=== PATIENT | male | born 1940 | race Caucasian/White ===

== ENCOUNTER → 2019-06-14 | Outpatient (CLI) | payer OTHER, MEDICARE ==
[~2019-06-14] MED LIST: ALDACTONE25 MG PO; ASPIRIN EC325 M1 PO; B12INJ; BYSTOLIC 5 MG5 M1 PO; CO Q-10100 MG PO; COUMADIN 4 MG TA4 M1 PO; KEFLEX500 MG PO; LIPITOR80 MG PO; TRILIPIX135 MG PO
== END ==
LOC: SJCVC 09:38
DX: Z51.81 Encounter for therapeutic drug level monitoring (principal); I25.10 Atherosclerotic heart disease of native coronary artery without angina pectoris; I10 Essential (primary) hypertension; E78.00 Pure hypercholesterolemia, unspecified; Z86.711 Personal history of pulmonary embolism; Z86.718 Personal history of other venous thrombosis and embolism; Z79.01 Long term (current) use of anticoagulants

== ENCOUNTER → 2019-06-21 | Outpatient (CLI) | payer OTHER, MEDICARE | LOC: SJCVC 09:19 | DX: Z51.81 Encounter for therapeutic drug level monitoring (principal); I25.810 Atherosclerosis of coronary artery bypass graft(s) without angina pectoris; I10 Essential (primary) hypertension; I42.9 Cardiomyopathy, unspecified; E78.00 Pure hypercholesterolemia, unspecified; Z79.01 Long term (current) use of anticoagulants; Z86.711 Personal history of pulmonary embolism; Z86.718 Personal history of other venous thrombosis and embolism ==

== ENCOUNTER → 2019-07-14 | Outpatient (CLI) | payer OTHER, MEDICARE | LOC: SJCVC 09:30 | DX: Z51.81 Encounter for therapeutic drug level monitoring (principal); I25.810 Atherosclerosis of coronary artery bypass graft(s) without angina pectoris; I10 Essential (primary) hypertension; E78.00 Pure hypercholesterolemia, unspecified; E78.5 Hyperlipidemia, unspecified; Z79.01 Long term (current) use of anticoagulants; Z86.711 Personal history of pulmonary embolism; Z95.810 Presence of automatic (implantable) cardiac defibrillator; Z86.718 Personal history of other venous thrombosis and embolism ==

== ENCOUNTER → 2019-08-10 | Outpatient (CLI) | payer OTHER, MEDICARE | LOC: SJCVC 09:16 | DX: Z51.81 Encounter for therapeutic drug level monitoring (principal); I25.10 Atherosclerotic heart disease of native coronary artery without angina pectoris; I25.5 Ischemic cardiomyopathy; I10 Essential (primary) hypertension; E78.00 Pure hypercholesterolemia, unspecified; Z79.01 Long term (current) use of anticoagulants; Z86.718 Personal history of other venous thrombosis and embolism; Z86.711 Personal history of pulmonary embolism ==

== ENCOUNTER → 2019-10-20 | Outpatient (CLI) | payer OTHER, MEDICARE | LOC: SJCVCIMAG 09-06 11:35 | PROVIDERS: ATTEND Internal Medicine Cardiovascular Disease | DX: I08.3 Combined rheumatic disorders of mitral, aortic and tricuspid valves (principal); I11.9 Hypertensive heart disease without heart failure; I44.7 Left bundle-branch block, unspecified; I42.9 Cardiomyopathy, unspecified; E78.5 Hyperlipidemia, unspecified; E78.00 Pure hypercholesterolemia, unspecified; I25.5 Ischemic cardiomyopathy; I73.9 Peripheral vascular disease, unspecified; D68.59 Other primary thrombophilia; I25.2 Old myocardial infarction; Z79.899 Other long term (current) drug therapy; Z86.718 Personal history of other venous thrombosis and embolism; Z95.810 Presence of automatic (implantable) cardiac defibrillator; I25.810 Atherosclerosis of coronary artery bypass graft(s) without angina pectoris; Z95.1 Presence of aortocoronary bypass graft; Z86.711 Personal history of pulmonary embolism; Z79.82 Long term (current) use of aspirin; Z82.49 Family history of ischemic heart disease and other diseases of the circulatory system ==

== ENCOUNTER → 2019-11-16 | Outpatient (CLI) | payer OTHER, MEDICARE | LOC: SJCVC 10:02 | PROVIDERS: ATTEND Internal Medicine Cardiovascular Disease | DX: Z51.81 Encounter for therapeutic drug level monitoring (principal); I25.10 Atherosclerotic heart disease of native coronary artery without angina pectoris; I10 Essential (primary) hypertension; E78.5 Hyperlipidemia, unspecified; E78.00 Pure hypercholesterolemia, unspecified; Z95.810 Presence of automatic (implantable) cardiac defibrillator; Z79.01 Long term (current) use of anticoagulants; Z79.82 Long term (current) use of aspirin; Z86.718 Personal history of other venous thrombosis and embolism; Z86.711 Personal history of pulmonary embolism; Z79.899 Other long term (current) drug therapy ==

== ENCOUNTER → 2019-12-14 | Outpatient (CLI) | payer OTHER, MEDICARE | LOC: SJCVC 09:35 | PROVIDERS: ATTEND Internal Medicine Cardiovascular Disease | DX: Z51.81 Encounter for therapeutic drug level monitoring (principal); I25.10 Atherosclerotic heart disease of native coronary artery without angina pectoris; I10 Essential (primary) hypertension; I42.9 Cardiomyopathy, unspecified; E78.00 Pure hypercholesterolemia, unspecified; Z79.01 Long term (current) use of anticoagulants; Z86.711 Personal history of pulmonary embolism ==

== ENCOUNTER → 2020-01-11 | Outpatient (CLI) | payer OTHER, MEDICARE | LOC: SJCVC 09:22 | PROVIDERS: ATTEND Internal Medicine Cardiovascular Disease | DX: Z51.81 Encounter for therapeutic drug level monitoring (principal); I25.10 Atherosclerotic heart disease of native coronary artery without angina pectoris; I10 Essential (primary) hypertension; E78.5 Hyperlipidemia, unspecified; E78.00 Pure hypercholesterolemia, unspecified; Z79.01 Long term (current) use of anticoagulants; Z86.711 Personal history of pulmonary embolism; Z95.810 Presence of automatic (implantable) cardiac defibrillator; Z86.718 Personal history of other venous thrombosis and embolism; Z79.899 Other long term (current) drug therapy; Z79.82 Long term (current) use of aspirin ==

== ENCOUNTER → 2020-02-08 | Outpatient (CLI) | payer OTHER, MEDICARE | LOC: SJCVC 09:36 | PROVIDERS: ATTEND Internal Medicine Cardiovascular Disease | DX: Z45.02 Encounter for adjustment and management of automatic implantable cardiac defibrillator (principal); I25.10 Atherosclerotic heart disease of native coronary artery without angina pectoris; I10 Essential (primary) hypertension; I42.9 Cardiomyopathy, unspecified; E78.00 Pure hypercholesterolemia, unspecified; I47.2 Ventricular tachycardia; Z95.810 Presence of automatic (implantable) cardiac defibrillator; Z79.01 Long term (current) use of anticoagulants; Z79.899 Other long term (current) drug therapy; Z86.718 Personal history of other venous thrombosis and embolism ==

== ENCOUNTER → 2020-03-08 | Outpatient (CLI) | payer OTHER, MEDICARE | LOC: SJCVC 09:24 | PROVIDERS: ATTEND Internal Medicine Cardiovascular Disease | DX: Z51.81 Encounter for therapeutic drug level monitoring (principal); Z79.01 Long term (current) use of anticoagulants ==

== ENCOUNTER → 2020-03-15 | Outpatient (CLI) | payer OTHER, MEDICARE | LOC: SJCVC 09:21 | PROVIDERS: ATTEND Internal Medicine Cardiovascular Disease | DX: Z51.81 Encounter for therapeutic drug level monitoring (principal); I25.10 Atherosclerotic heart disease of native coronary artery without angina pectoris; I10 Essential (primary) hypertension; E78.00 Pure hypercholesterolemia, unspecified; Z79.01 Long term (current) use of anticoagulants; Z79.899 Other long term (current) drug therapy; Z86.711 Personal history of pulmonary embolism ==

== ENCOUNTER → 2020-03-31 | Outpatient (CLI) | payer OTHER, MEDICARE | LOC: SJCVC 09:26 | PROVIDERS: ATTEND Internal Medicine Cardiovascular Disease | DX: Z51.81 Encounter for therapeutic drug level monitoring (principal); I25.10 Atherosclerotic heart disease of native coronary artery without angina pectoris; I10 Essential (primary) hypertension; E78.00 Pure hypercholesterolemia, unspecified; Z79.01 Long term (current) use of anticoagulants; Z79.899 Other long term (current) drug therapy ==

== ENCOUNTER → 2020-04-25 | Outpatient (CLI) | payer OTHER, MEDICARE | LOC: SJCVC 09:18 | PROVIDERS: ATTEND Internal Medicine Cardiovascular Disease | DX: Z51.81 Encounter for therapeutic drug level monitoring (principal); I82.4Y9 Acute embolism and thrombosis of unspecified deep veins of unspecified proximal lower extremity; I26.99 Other pulmonary embolism without acute cor pulmonale; Z79.01 Long term (current) use of anticoagulants ==

== ENCOUNTER → 2020-05-23 | Outpatient (CLI) | payer OTHER, MEDICARE | LOC: SJCVC 09:21 | PROVIDERS: ATTEND Internal Medicine Cardiovascular Disease | DX: R94.31 Abnormal electrocardiogram [ECG] [EKG] (principal); I45.4 Nonspecific intraventricular block; I47.2 Ventricular tachycardia; I25.5 Ischemic cardiomyopathy; I10 Essential (primary) hypertension; E78.5 Hyperlipidemia, unspecified; I25.10 Atherosclerotic heart disease of native coronary artery without angina pectoris; Z95.1 Presence of aortocoronary bypass graft; Z95.810 Presence of automatic (implantable) cardiac defibrillator; Z79.82 Long term (current) use of aspirin; Z79.01 Long term (current) use of anticoagulants; Z79.899 Other long term (current) drug therapy ==

== ENCOUNTER → 2020-05-31 | Outpatient (CLI) | payer OTHER, MEDICARE ==
[~2020-05-31] MED LIST changes: +COZAAR 25 MG TA25 M1 PO
== END ==
LOC: LAB 10:37
PROVIDERS: ATTEND Internal Medicine Cardiovascular Disease
DX: Z01.812 Encounter for preprocedural laboratory examination (principal); Z20.828 Contact with and (suspected) exposure to other viral communicable diseases

== ENCOUNTER → 2020-06-05 | Outpatient (CLI) | payer OTHER, MEDICARE ==
[~2020-06-05] VITALS: Ht 170.2 cm; Wt 94.3 kg
--- NOTE | ~2020-06-05 | P ---
[facility] [place] [address] PROCEDURE REPORT Name: SHAYY YOUNG Room #: REG [facility]#: [id number] Admission: 06/05/20 Attend Phys: Ji Aquino MD Discharge: Date of : 40 Report #: [id number] THIS REPORT FOR: cc: Omi Ledesma MD, Eric K. MD Couchonnal, Luis F. MD ~ PROCEDURE: ICD generator exchange. PREOPERATIVE DIAGNOSIS: Implantable cardioverter-defibrillator at elective replacement interval. POSTOPERATIVE DIAGNOSIS: Implantable cardioverter-defibrillator at elective replacement interval. HISTORY: The patient is an 80-year-old male with history of ischemic cardiomyopathy, status post ICD implantation, who is here for ICD generator exchange. ANESTHESIA: The patient underwent MAC anesthesia with no anesthesia related complications. DESCRIPTION OF PROCEDURE: The patient underwent informed consent. We discussed the details of the procedure including the risks, which include but not limited to bleeding, infection, vascular damage and need for possible lead revisions. He understood these risks and is willing to proceed. The patient was brought to EP laboratory in fasting and sedated state, prepped and draped in a sterile fashion. He received IV antibiotics prior to initiation of the procedure. Next, I injected lidocaine at the incision site. Incision was made, pocket was opened and the device was removed from the pocket. I expanded the pocket slightly inferiorly and superiorly to allow for the new device to sit in the pocket better and hopefully prevent pocket erosion in the future. The leads were disconnected from the old device and connected to the new can. Tug tests were performed and leads were tested and found to be functioning normally. A TYRX antibiotic pouch was placed in the pocket to prevent infection. The pocket was irrigated with vancomycin. The pocket was closed in 2 layers using 2-0 for the deep layer, 3-0 for the mid layer and surgical glue was placed to outer skin layer. The patient awoke neurologically and hemodynamically intact. No complications and no significant bleeding. The removed device was a Medtronic, model #X077URI, serial #[id number]. The newly implanted device was a Medtronic, model #JPDS1Y8, serial #[id number]. Atrial lead was a Medtronic #5076, 52 cm, serial #[id number], implanted on 11/24/2004. The ICD lead is a Medtronic model #6935, 62 cm, serial #[id number]. This was implanted on 08/10/2012. The patient also has a capped abandoned lead, model #6949, 65 cm, serial #[id number], implanted on 11/28/2004 and this lead was capped. The atrial lead demonstrates a P-wave of 1 millivolt, pacing impedance [facility] [address] [place] [address] PROCEDURE REPORT Name: SHAYY YOUNG JARRETT Room #: REG [facility]#: [id number] Admission: 06/05/20 Attend Phys: Ji Aquino MD Discharge: Date of : 40 Report #: [id number] of 457 ohms and the pacing threshold was 0.7 volts at 0.5 msec. The RV lead demonstrated R-wave of 17.8 millivolts, pacing impedance of 371 ohms, pacing threshold 0.8 volts at 0.5 milliseconds. The device was programmed back to its nominal settings. CONCLUSIONS: 1. Successful dual-chamber ICD implantation. 2. Satisfactory atrial and ventricular pacing and sensing thresholds. By: [id number] Ji Aquino MD /nt
[2020-06-05 07:41] LABS: ABSOLUTE NEUTROPHILS 4.9 thou/uL (1.4-8.2); BASOPHILS 0.7 % (0.0-2.0); HEMATOCRIT 43.5 % (42.0-52.0); HEMOGLOBIN 14.3 gm/dL (14.0-18.0); LYMPHOCYTES 22.9 % (24.0-44.0); MCH 30.4 pg (26.0-34.0); MCHC 32.8 g/dL (28.0-37.0); MCV 92.4 fL (80.0-100.0); MONOCYTES 12.3 % (1.0-8.0); PLATELET COUNT 202 thou/uL (150-400); POLYS 62.1 % (36.0-66.0); RDW 14.1 % (10.5-14.5); WBC 7.8 thou/uL (4.0-11.0)
[2020-06-05 07:48] VITALS: BP 99/42
[2020-06-05 07:54] LABS: CALCIUM 8.9 mg/dL (8.5-10.1); CREATININE 1.1 mg/dL (0.7-1.3); POTASSIUM 4.1 mmol/L (3.5-5.1)
[2020-06-05 08:00] LABS: ALBUMIN 3.6 g/dL (3.4-5.0); TOTAL BILIRUBIN 0.8 mg/dL (0.2-1.0)
[2020-06-05 08:06] LABS: APTT 24.7 Seconds (24.5-32.8); INR 1.2
== END | disposition home or self-care (01) ==
LOC: CATH 06:38
PROVIDERS: ATTEND Internal Medicine Cardiovascular Disease
DX: Z45.02 Encounter for adjustment and management of automatic implantable cardiac defibrillator (principal); I25.5 Ischemic cardiomyopathy; I25.2 Old myocardial infarction; I10 Essential (primary) hypertension; E78.5 Hyperlipidemia, unspecified; Z98.890 Other specified postprocedural states; Z79.899 Other long term (current) drug therapy; Z95.1 Presence of aortocoronary bypass graft; Z82.49 Family history of ischemic heart disease and other diseases of the circulatory system; Z79.82 Long term (current) use of aspirin; Z79.01 Long term (current) use of anticoagulants
CPT/HCPCS: 62110; 62900; 70005

== ENCOUNTER → 2020-06-15 | Outpatient (CLI) | payer OTHER, MEDICARE | LOC: SJCVC 13:05 | PROVIDERS: ATTEND Internal Medicine Cardiovascular Disease | DX: Z51.81 Encounter for therapeutic drug level monitoring (principal); I25.10 Atherosclerotic heart disease of native coronary artery without angina pectoris; I10 Essential (primary) hypertension; E78.5 Hyperlipidemia, unspecified; E78.00 Pure hypercholesterolemia, unspecified; Z95.810 Presence of automatic (implantable) cardiac defibrillator; Z79.01 Long term (current) use of anticoagulants; Z86.711 Personal history of pulmonary embolism; Z79.82 Long term (current) use of aspirin; Z79.899 Other long term (current) drug therapy ==

== ENCOUNTER → 2020-06-29 | Outpatient (CLI) | payer OTHER, MEDICARE | LOC: SJCVC 09:51 | PROVIDERS: ATTEND Internal Medicine Cardiovascular Disease | DX: Z51.81 Encounter for therapeutic drug level monitoring (principal); Z79.01 Long term (current) use of anticoagulants; Z79.82 Long term (current) use of aspirin; Z79.899 Other long term (current) drug therapy; Z91.030 Bee allergy status; Z88.9 Allergy status to unspecified drugs, medicaments and biological substances; Z95.1 Presence of aortocoronary bypass graft; Z98.890 Other specified postprocedural states; Z72.89 Other problems related to lifestyle ==

== ENCOUNTER → 2020-07-28 | Outpatient (CLI) | payer OTHER, MEDICARE | LOC: SJCVC 09:49 | PROVIDERS: ATTEND Internal Medicine Cardiovascular Disease | DX: Z51.81 Encounter for therapeutic drug level monitoring (principal); I82.4Y9 Acute embolism and thrombosis of unspecified deep veins of unspecified proximal lower extremity; I26.99 Other pulmonary embolism without acute cor pulmonale; Z79.02 Long term (current) use of antithrombotics/antiplatelets ==

== ENCOUNTER → 2020-08-22 | Outpatient (CLI) | payer OTHER, MEDICARE | LOC: SJCVC 10:05 | PROVIDERS: ATTEND Internal Medicine Cardiovascular Disease | DX: Z51.81 Encounter for therapeutic drug level monitoring (principal); I10 Essential (primary) hypertension; I25.10 Atherosclerotic heart disease of native coronary artery without angina pectoris; E78.5 Hyperlipidemia, unspecified; E78.00 Pure hypercholesterolemia, unspecified; Z95.810 Presence of automatic (implantable) cardiac defibrillator; Z79.01 Long term (current) use of anticoagulants ==

== ENCOUNTER → 2020-09-19 | Outpatient (CLI) | payer OTHER, MEDICARE | LOC: SJCVC 09:04 | PROVIDERS: ATTEND Internal Medicine Cardiovascular Disease | DX: Z51.81 Encounter for therapeutic drug level monitoring (principal); I82.4Y9 Acute embolism and thrombosis of unspecified deep veins of unspecified proximal lower extremity; I26.99 Other pulmonary embolism without acute cor pulmonale; Z79.01 Long term (current) use of anticoagulants ==

== ENCOUNTER → 2020-10-10 | Outpatient (CLI) | payer OTHER, MEDICARE | LOC: SJCVC 09:27 | PROVIDERS: ATTEND Internal Medicine Cardiovascular Disease | DX: Z51.81 Encounter for therapeutic drug level monitoring (principal); I25.10 Atherosclerotic heart disease of native coronary artery without angina pectoris; I10 Essential (primary) hypertension; I25.5 Ischemic cardiomyopathy; I82.409 Acute embolism and thrombosis of unspecified deep veins of unspecified lower extremity; E78.5 Hyperlipidemia, unspecified; E78.00 Pure hypercholesterolemia, unspecified; Z95.810 Presence of automatic (implantable) cardiac defibrillator; Z79.01 Long term (current) use of anticoagulants ==

== ENCOUNTER → 2020-10-19 | Outpatient (CLI) | payer OTHER, MEDICARE | LOC: SJCVC 10:23 | PROVIDERS: ATTEND Internal Medicine Cardiovascular Disease | DX: Z51.81 Encounter for therapeutic drug level monitoring (principal); I25.5 Ischemic cardiomyopathy; I25.10 Atherosclerotic heart disease of native coronary artery without angina pectoris; I10 Essential (primary) hypertension; E78.5 Hyperlipidemia, unspecified; E78.00 Pure hypercholesterolemia, unspecified; Z95.1 Presence of aortocoronary bypass graft; Z79.01 Long term (current) use of anticoagulants; Z79.899 Other long term (current) drug therapy; Z79.82 Long term (current) use of aspirin; Z72.89 Other problems related to lifestyle; Z88.8 Allergy status to other drugs, medicaments and biological substances ==

== ENCOUNTER → 2020-10-31 | Outpatient (CLI) | payer OTHER, MEDICARE | LOC: SJCVC 09:29 | PROVIDERS: ATTEND Internal Medicine Cardiovascular Disease | DX: Z51.81 Encounter for therapeutic drug level monitoring (principal); I82.4Y9 Acute embolism and thrombosis of unspecified deep veins of unspecified proximal lower extremity; I26.99 Other pulmonary embolism without acute cor pulmonale; Z79.01 Long term (current) use of anticoagulants ==

== ENCOUNTER → 2020-11-14 | Outpatient (CLI) | payer OTHER, MEDICARE | LOC: SJCVC 09:31 | PROVIDERS: ATTEND Internal Medicine Cardiovascular Disease | DX: Z51.81 Encounter for therapeutic drug level monitoring (principal); I25.10 Atherosclerotic heart disease of native coronary artery without angina pectoris; I10 Essential (primary) hypertension; E78.49 Other hyperlipidemia; I25.5 Ischemic cardiomyopathy; Z79.01 Long term (current) use of anticoagulants; Z79.82 Long term (current) use of aspirin; Z79.899 Other long term (current) drug therapy; Z91.048 Other nonmedicinal substance allergy status; E78.00 Pure hypercholesterolemia, unspecified; Z86.718 Personal history of other venous thrombosis and embolism; Z95.828 Presence of other vascular implants and grafts; Z95.1 Presence of aortocoronary bypass graft ==

== ENCOUNTER → 2020-12-12 | Outpatient (CLI) | payer OTHER, MEDICARE | LOC: SJCVC 09:29 | PROVIDERS: ATTEND Internal Medicine Cardiovascular Disease | DX: Z51.81 Encounter for therapeutic drug level monitoring (principal); I25.10 Atherosclerotic heart disease of native coronary artery without angina pectoris; I10 Essential (primary) hypertension; E78.5 Hyperlipidemia, unspecified; E78.00 Pure hypercholesterolemia, unspecified; Z79.01 Long term (current) use of anticoagulants ==

== ENCOUNTER → 2021-01-09 | Outpatient (CLI) | payer OTHER, MEDICARE | LOC: SJCVC 10:55 | PROVIDERS: ATTEND Internal Medicine Cardiovascular Disease | DX: Z51.81 Encounter for therapeutic drug level monitoring (principal); I25.10 Atherosclerotic heart disease of native coronary artery without angina pectoris; I10 Essential (primary) hypertension; E78.5 Hyperlipidemia, unspecified; E78.00 Pure hypercholesterolemia, unspecified; Z79.82 Long term (current) use of aspirin; Z79.01 Long term (current) use of anticoagulants; Z79.899 Other long term (current) drug therapy; Z86.718 Personal history of other venous thrombosis and embolism ==

== ENCOUNTER → 2021-02-20 | Outpatient (CLI) | payer OTHER, MEDICARE | LOC: SJCVC 10:20 | PROVIDERS: ATTEND Internal Medicine Cardiovascular Disease | DX: Z51.81 Encounter for therapeutic drug level monitoring (principal); I25.10 Atherosclerotic heart disease of native coronary artery without angina pectoris; E78.2 Mixed hyperlipidemia; Z79.01 Long term (current) use of anticoagulants; Z79.82 Long term (current) use of aspirin; Z79.899 Other long term (current) drug therapy; Z91.018 Allergy to other foods; Z91.09 Other allergy status, other than to drugs and biological substances; Z95.1 Presence of aortocoronary bypass graft; Z95.818 Presence of other cardiac implants and grafts; Z72.89 Other problems related to lifestyle ==

== ENCOUNTER → 2021-03-20 | Outpatient (CLI) | payer OTHER, MEDICARE | LOC: SJCVC 09:27 | PROVIDERS: ATTEND Internal Medicine Cardiovascular Disease | DX: Z51.81 Encounter for therapeutic drug level monitoring (principal); I82.4Y9 Acute embolism and thrombosis of unspecified deep veins of unspecified proximal lower extremity; I26.99 Other pulmonary embolism without acute cor pulmonale; Z79.01 Long term (current) use of anticoagulants ==

== ENCOUNTER → 2021-04-09 | Outpatient (CLI) | payer OTHER, MEDICARE | LOC: SJCVCIMAG 12:13 | PROVIDERS: ATTEND Internal Medicine Cardiovascular Disease | DX: I08.1 Rheumatic disorders of both mitral and tricuspid valves (principal); R94.31 Abnormal electrocardiogram [ECG] [EKG]; I49.1 Atrial premature depolarization; I45.89 Other specified conduction disorders; I25.10 Atherosclerotic heart disease of native coronary artery without angina pectoris; I10 Essential (primary) hypertension; E78.00 Pure hypercholesterolemia, unspecified; I25.5 Ischemic cardiomyopathy; I82.4Y2 Acute embolism and thrombosis of unspecified deep veins of left proximal lower extremity; I87.8 Other specified disorders of veins; D68.59 Other primary thrombophilia; I73.9 Peripheral vascular disease, unspecified; R53.83 Other fatigue; E78.49 Other hyperlipidemia; Z45.02 Encounter for adjustment and management of automatic implantable cardiac defibrillator; Z72.89 Other problems related to lifestyle; Z79.82 Long term (current) use of aspirin; Z79.899 Other long term (current) drug therapy; Z88.8 Allergy status to other drugs, medicaments and biological substances; Z95.1 Presence of aortocoronary bypass graft; Z51.81 Encounter for therapeutic drug level monitoring; Z79.01 Long term (current) use of anticoagulants ==

== ENCOUNTER → 2021-05-16 | Outpatient (CLI) | payer OTHER, MEDICARE | LOC: SJCVCIMAG 07:25 | PROVIDERS: ATTEND Internal Medicine Cardiovascular Disease | DX: I25.10 Atherosclerotic heart disease of native coronary artery without angina pectoris (principal); I42.9 Cardiomyopathy, unspecified; E78.00 Pure hypercholesterolemia, unspecified; I10 Essential (primary) hypertension; E78.01 Familial hypercholesterolemia; Z51.81 Encounter for therapeutic drug level monitoring; Z79.01 Long term (current) use of anticoagulants; Z72.89 Other problems related to lifestyle; Z95.1 Presence of aortocoronary bypass graft; Z79.82 Long term (current) use of aspirin ==

== ENCOUNTER → 2021-06-13 | Outpatient (CLI) | payer OTHER, MEDICARE | LOC: SJCVC 09:23 | PROVIDERS: ATTEND Internal Medicine Cardiovascular Disease | DX: Z51.81 Encounter for therapeutic drug level monitoring (principal); I25.10 Atherosclerotic heart disease of native coronary artery without angina pectoris; I10 Essential (primary) hypertension; E78.00 Pure hypercholesterolemia, unspecified; E78.49 Other hyperlipidemia; Z79.01 Long term (current) use of anticoagulants; Z79.82 Long term (current) use of aspirin; Z95.1 Presence of aortocoronary bypass graft; Z82.49 Family history of ischemic heart disease and other diseases of the circulatory system; Z72.89 Other problems related to lifestyle; Z91.048 Other nonmedicinal substance allergy status ==

== ENCOUNTER → 2021-07-10 | Outpatient (CLI) | payer OTHER, MEDICARE | LOC: SJCVC 09:30 | PROVIDERS: ATTEND Internal Medicine Cardiovascular Disease | DX: Z51.81 Encounter for therapeutic drug level monitoring (principal); I82.4Y9 Acute embolism and thrombosis of unspecified deep veins of unspecified proximal lower extremity; I26.99 Other pulmonary embolism without acute cor pulmonale; Z79.01 Long term (current) use of anticoagulants ==

== ENCOUNTER → 2021-07-24 | Outpatient (CLI) | payer OTHER, MEDICARE | LOC: SJCVC 09:38 | PROVIDERS: ATTEND Internal Medicine Cardiovascular Disease | DX: I82.4Y9 Acute embolism and thrombosis of unspecified deep veins of unspecified proximal lower extremity (principal); I26.99 Other pulmonary embolism without acute cor pulmonale; Z79.82 Long term (current) use of aspirin; Z79.01 Long term (current) use of anticoagulants; Z79.899 Other long term (current) drug therapy ==